=== PATIENT | male | born 1985 | race Caucasian/White ===

== ENCOUNTER 2019-02-10 13:53 | Emergency (ER) | payer MEDICAID ==
[~2019-02-10] VITALS: Ht 182.9 cm; Wt 97.7 kg
[2019-02-10 14:12] VITALS: BP 134/78
[2019-02-10] MEDS ORDERED: IBUP-1985 PO (15:23)
== END 2019-02-10 15:47 | disposition home or self-care (01) ==
LOC: ER 13:54
DX: S92.352A Displaced fracture of fifth metatarsal bone, left foot, initial encounter for closed fracture (principal); Z79.899 Other long term (current) drug therapy; W20.8XXA Other cause of strike by thrown, projected or falling object, initial encounter; Y93.89 Activity, other specified; Y92.89 Other specified places as the place of occurrence of the external cause; Y99.8 Other external cause status
CPT/HCPCS: 73630; 99283

== ENCOUNTER 2019-02-13 16:24 | Emergency (ER) | payer MEDICAID ==
[~2019-02-13] VITALS: Ht 182.9 cm; Wt 97.7 kg
[~2019-02-13 16:24] MED LIST: IBUP-1985 PO
[2019-02-13 16:25] VITALS: BP 138/82
[2019-02-13] MEDS ORDERED: IBUP-1985 PO (16:44)
== END 2019-02-13 16:48 | disposition home or self-care (01) ==
LOC: ER 16:24
DX: M25.511 Pain in right shoulder (principal); Z79.899 Other long term (current) drug therapy; X50.1XXA Overexertion from prolonged static or awkward postures, initial encounter; Y93.89 Activity, other specified; Y92.89 Other specified places as the place of occurrence of the external cause; Y99.8 Other external cause status
CPT/HCPCS: 99282

== ENCOUNTER 2019-06-30 19:22 | Emergency (ER) | payer MEDICAID ==
[~2019-06-30] VITALS: Ht 182.9 cm; Wt 105.0 kg
[2019-06-30 19:25] VITALS: BP 134/77
[2019-06-30] MEDS ORDERED: PENI500T2 PO (20:10)
[2019-06-30] MEDS ORDERED: NAPR-56 PO (20:10)
== END 2019-06-30 20:19 | disposition home or self-care (01) ==
LOC: ER 19:22
DX: K08.89 Other specified disorders of teeth and supporting structures (principal); K00.7 Teething syndrome; F10.99 Alcohol use, unspecified with unspecified alcohol-induced disorder; Z79.899 Other long term (current) drug therapy; Y90.9 Presence of alcohol in blood, level not specified
CPT/HCPCS: 99283

== ENCOUNTER 2020-04-03 19:54 | Emergency (ER) | payer MEDICAID ==
[~2020-04-03] VITALS: Ht 182.9 cm; Wt 97.7 kg
[2020-04-03 20:04] VITALS: BP 143/91
[2020-04-03] MEDS ORDERED: PENI250T2 PO (20:17)
[2020-04-03] MEDS ORDERED: NAPR-56 PO (20:17)
== END 2020-04-03 20:38 | disposition home or self-care (01) ==
LOC: ER 19:55
DX: K04.7 Periapical abscess without sinus (principal); Z72.89 Other problems related to lifestyle; Z79.2 Long term (current) use of antibiotics; Z79.899 Other long term (current) drug therapy
CPT/HCPCS: 99283

== ENCOUNTER 2020-09-28 18:37 | Emergency (ER) | payer MEDICAID ==
--- NOTE | 2020-09-28 18:50 | NUR ---
PT CALLED INTO TRIAGE. HE WAS NOT IN LOBBY CHARGE NURSE NOTIFIED
== END 2020-09-28 18:54 | disposition left against medical advice (07) ==
LOC: ER 18:38
DX: M54.5 Low back pain (principal); Z53.21 Procedure and treatment not carried out due to patient leaving prior to being seen by health care provider

== ENCOUNTER 2020-10-01 15:26 | Emergency (ER) | payer MEDICAID, OTHER ==
[~2020-10-01] VITALS: Ht 182.9 cm; Wt 101.0 kg
[2020-10-01 15:51] VITALS: BP 145/96
[2020-10-01] MEDS ORDERED: ORPH100T2 PO (15:58)
--- NOTE | 2020-10-01 16:09 | NUR ---
seen and assessed by provider.
== END 2020-10-01 16:12 | disposition home or self-care (01) ==
LOC: ER 15:27
DX: S39.012A Strain of muscle, fascia and tendon of lower back, initial encounter (principal); Z72.89 Other problems related to lifestyle; Z79.899 Other long term (current) drug therapy; V49.60XA Unspecified car occupant injured in collision with unspecified motor vehicles in traffic accident, initial encounter; Y93.89 Activity, other specified; Y92.89 Other specified places as the place of occurrence of the external cause; Y99.8 Other external cause status
CPT/HCPCS: 99283

== ENCOUNTER 2021-10-06 12:33 | Emergency (ER) | payer MEDICAID ==
[~2021-10-06] VITALS: Ht 182.9 cm; Wt 97.7 kg
[~2021-10-06 12:33] MED LIST changes: +ORPH100T2 PO
[2021-10-06 13:05] VITALS: BP 133/88
== END 2021-10-06 13:57 | disposition home or self-care (01) ==
LOC: ER 12:34
DX: M25.512 Pain in left shoulder (principal); Z72.89 Other problems related to lifestyle; Z79.899 Other long term (current) drug therapy
CPT/HCPCS: 73030; 99283

== ENCOUNTER 2025-02-08 07:14 | Inpatient (IN) | payer MEDICAID ==
[2025-02-08] VITALS (16 sets, daily range): BP systolic 117–145; BP diastolic 64–90; PULSE 83–115; RESP 12–34; TEMP 97.9; O2SAT 92–99
[~2025-02-08] VITALS: Ht 182.9 cm; Wt 112.5 kg
[~2025-02-08 07:14] MED LIST changes: -ORPH100T2 PO; +ORPH100T4 PO
[2025-02-08 07:39] LABS: BASOPHILS # (AUTO) 0.1 X10'3 (0-0.2); BASOPHILS % (AUTO) 0.2 % (0-1); EOSINOPHILS % (AUTO) 0.1 % (0-6); HEMATOCRIT 49.5 % (42.0-52.0); HEMOGLOBIN 16.4 g/dl (14.0-17.9); LYMPHOCYTES # (AUTO) 1.2 X10'3 (1.1-4.8); LYMPHOCYTES % (AUTO) 4.4 % (21-51); MEAN CORPUSCULAR HEMOGLOBIN 30.6 PG (27.0-31.0); MEAN CORPUSCULAR HGB CONC 33.1 g/dL (33.0-36.5); MEAN CORPUSCULAR VOLUME 92.6 FL (78-98); MEAN PLATELET VOLUME 6.8 FL (7.4-10.4); MONOCYTES # (AUTO) 1.9 X10'3 (0-0.9); MONOCYTES % (AUTO) 7.1 % (2-12); NEUTROPHILS # (AUTO) 24.2 X10'3 (1.8-7.7); NEUTROPHILS % (AUTO) 88.2 % (42-75); PLATELET COUNT 346 X10'3 (140-440); RED BLOOD COUNT 5.35 X10'6 (4.70-6.10); RED CELL DISTRIBUTION WIDTH 13.7 % (11.5-14.5)
[2025-02-08 07:40] LABS: WHITE BLOOD COUNT 27.4 X10'3 (4.5-11.0)
[2025-02-08 08:06] LABS: ALANINE AMINOTRANSFERASE 37 U/L (12-78); ALBUMIN 3.6 G/DL (3.4-5.0); ALKALINE PHOSPHATASE 90 IU/L (46-116); AMYLASE 12 U/L (25-115); ANION GAP 10 (8-16); ASPARTATE AMINO TRANSFERASE 13 U/L (10-37); BILIRUBIN,TOTAL 1.2 MG/DL (0.1-1.0); BLOOD UREA NITROGEN 7 MG/DL (7-18); BUN/CREATININE RATIO 7.4 (10.0-20.0); CALCIUM 8.8 MG/DL (8.5-10.1); CHLORIDE 102 MMOL/L (99-107); CREATININE 0.95 MG/DL (0.60-1.10); GLUCOSE 118 MG/DL (70-104); LIPASE 12 U/L (16-77); POTASSIUM 3.7 MMOL/L (3.5-5.1); SODIUM 138 MMOL/L (135-145); TOTAL CARBON DIOXIDE 26.5 MMOL/L (24-32); TOTAL PROTEIN 7.2 G/DL (6.4-8.2); eCRCL 117 ML/MIN; eGFR 89 ML/MIN
[2025-02-08 08:37] LABS: LYMPHOCYTES % (MANUAL) 6 % (21-51); MONOCYTES % (MANUAL) 6 % (2-12); NEUTROPHILS % (MANUAL) 88 % (42-75); PLATELET ESTIMATE NORMAL; TOTAL CELLS COUNTED 100
--- NOTE | 2025-02-08 09:10 | Physician Documentation ---
History of Present Illness Chief Complaint: Abdominal Pain Stated Complaint: FOOD POISONING Time Seen by MD: 09:08 OK to notify your PCP?: Yes Primary Medical Doctor: NONE Source: patient, RN/MD, RN notes reviewed, old records Mode of Arrival: POV Exam Limitations: no limitations HPI 39 year old male presents to the emergency department for complaints of right sided abdominal pain that began after eating a meal on 02/04. He states he had a sample platter from [employer] he originally thought he had food poisoning because of he date. Since then he has been having diarrhea and vomiting. Additionally he complains that his abdominal pain has been getting progressively worse. He states it hurts to walk and he can only move slowly. Patient denies any other associated symptoms at this time. Patient denies any other alleviating or exacerbating factors Medication Reconciliation Allergies: Coded Allergies: No Known Allergies (Unverified , 02/08/25) Scheduled Ibuprofen (Ibuprofen), 1 TAB PO Q8H Ibuprofen (Ibuprofen), 1 TAB PO Q8H Orphenadrine Citrate (Norflex), 1 TAB PO Q12H PRN Past Medical History Past Medical History: No Pertinent History Past Surgical History: no surgical history Other Past Family History: NONE Alcohol Use: Occasionally Drug Use: none Lives In: Home Occupation: employed Review of Systems All Other Systems at this time: Reviewed and Negative ROS As stated above in the HPI, otherwise all systems are reviewed and negative. Physical Exam Vital Signs: RN Vital Signs have been reviewed: Yes, Temperature: 97.8, Source: Oral, Heart Rate: 79, Respiratory Rate: 16, BP: 133/84, Pulse Oximetry: 100, Weight: 112.450 Pulse Oximetry Reflects: adequate oxygenation Physical Exam General: The patient is well developed, well nourished, nontoxic appearing and is in no acute distress. Skin: [place], warm and dry with no rashes. HEENT: Head was normocephalic and atraumatic. Eyes - pupils equal, round, reactive to light and accommodation. Extraocular movements were intact. Conjunctivae were nonicteric. Ears - bilateral tympanic membranes were normal. The mouth and oropharynx were clear with moist mucous membranes. There were no pharyngeal exudates or erythema. Neck: Supple and nontender. There was no jugular venous distention, lymphadenopathy, thyromegaly or masses. Chest: Clear to auscultation bilaterally without wheezes, rales or rhonchi. No accessory muscle use. No dullness to percussion. Heart: Rate regular and rhythmic. S1, S2. No murmurs. Palpation of the chest wall was normal. No rubs or thrills. Abdomen: Increased bowel sounds. Positive heel strike test. Right pin point tenderness to abdomen. No guarding or rebound. No hepatosplenomegaly or palpable masses. Extremities: No cyanosis, clubbing or edema. The patient moves all extremities. Pulses were equal and symmetric. Neurologic: Cranial nerves II-XII were intact. Sensation was intact to light touch throughout. Motor strength was 5/5 in all four extremities. Deep tendon reflexes were intact in both upper and lower extremities. Psychologic: The patient was oriented to person, place and time. The patient demonstrated appropriate judgement and insight. Progress Progress Note 1029: The case was discussed with the hospitalist Dr. Liang who was informed on t he case and kindly agreed to admit. Results/Orders Reviewed/noted all lab results: Yes Results/Orders Orders - LUISITO FIELDS MD Urinalysis, Cult If Indicated (02/08/25 07:19) Completed Orders - LUISITO FIELDS MD Cbc/Diff (02/08/25 07:19) BMP (02/08/25 07:19) Amylase (02/08/25 07:19) Lipase (02/08/25 07:19) CMP (02/08/25 07:19) Man Diff (02/08/25 07:26) Vital Signs 02/08/25 02/08/25 07:16 09:03 Temp 97.8 Pulse 90 79 Resp 18 16 B/P (MAP) 158/92 133/84 (100) Pulse Ox 99 100 Laboratory Tests Test 02/08/25 07:26 White Blood Count 27.4 *H Red Blood Count 5.35 Hemoglobin 16.4 Hematocrit 49.5 Mean Corpuscular Volume 92.6 Mean Corpuscular Hemoglobin 30.6 Mean Corpuscular Hemoglobin Concent 33.1 Red Cell Distribution Width 13.7 Platelet Count 346 Mean Platelet Volume 6.8 L Neutrophils (%) (Auto) 88.2 H Lymphocytes (%) (Auto) 4.4 L Monocytes (%) (Auto) 7.1 Eosinophils (%) (Auto) 0.1 Basophils (%) (Auto) 0.2 Neutrophils # (Auto) 24.2 H Lymphocytes # (Auto) 1.2 Monocytes # (Auto) 1.9 H Eosinophils # (Auto) 0.0 Basophils # (Auto) 0.1 CBC Comment Differential Total Cells Counted 100 Neutrophils % (Manual) 88 H Lymphocytes % (Manual) 6 L Monocytes % (Manual) 6 Platelet Estimate Normal Red Blood Cell Morphology Normal Basophilic Stippling Sodium Level 138 Potassium Level 3.7 Chloride Level 102 Carbon Dioxide Level 26.5 Anion Gap 10 Blood Urea Nitrogen 7 Creatinine 0.95 Estimated GFR/1.73 m2 89 BUN/Creatinine Ratio 7.4 L Glucose Level 118 H Calcium Level 8.8 Total Bilirubin 1.2 H Aspartate Amino Transf (AST/SGOT) 13 Alanine Aminotransferase (ALT/SGPT) 37 Alkaline Phosphatase 90 Total Protein 7.2 Albumin 3.6 Globulin 3.6 Albumin/Globulin Ratio 1.0 L Amylase Level 12 L Lipase 12 L Chemistry Comments Re-Evaluation Re-Evaluation : Re-Evaluation: Improved Progress Patient was seen and examined. Patient is given reassurance. Patient had significant pain with acute appendicitis in the right lower quadrant upon presentation. Immediate antibiotics and fluid resuscitation was started. I contacted general surgery however cat scan was requested to rule out abscess since it seems the patient may already have a ruptured appendicitis. Laboratory work was concerning for possible rupture since the WBC was 27.4. There is a left shift of 88 neutrophils. Coagulation was within normal limits chemistry within normal limits LFTs also within normal limits lactic acid 1.4 which is reassuring and tox screen was positive for opiates which was due to the morphine given to the patient in the ER urinalysis also was within normal limits. After the CAT scan showed early signs of rupture patient was then admitted to the hospitalist service and scheduled for emergent laparoscopic appendectomy with possibility of converting to an open laparotomy. Patient received blood cultures Zosyn 3.375 mg tetanus was offered. Continuous laboratory monitor interpretation shows sinus tachycardia heart rate 100s, abnormal, my interpretation. Pulse oximetry monitor interpretation shows normal oxygenation 99% room air, normal, my interpretation. EKG/XRAY/CT/US/VASC/MRI CT : Impression Exam: CT CT ABDOMEN PELVIS W/ IV CONTRAST History: ABD PAIN TECHNIQUE: Multiple contiguous axial CT images of the abdomen and pelvis were obtained with intravenous contrast. The images were reformatted to generate coronal and sagittal reconstructions. 100 cc of Omnipaque 350 contrast was injected intravenously. All CT scans at this medical facility are performed using dose modulation techniques as appropriate to a performed exam including the following:Automated exposure control was utilized; adjustment of the MA and/or KV according to patient size; and use of iterative reconstruction technique. Radiation Dose Information: CT Dose: CTDI volume is 35 mGy. Dose-length product is 1969 mGy*cm Comparison: None FINDINGS: There is diffuse fatty infiltration of the liver. The gallbladder, pancreas, kidneys, adrenal glands, and spleen appear within normal limits. There is no evidence of abdominal lymphadenopathy. There is no free fluid or free air. The stomach grossly appears unremarkable. The small and large bowel loops demonstrate normal caliber and distribution. There is a dilated appendix with mural thickening with moderate surrounding fat stranding consistent with acute appendicitis. There is small amount of periappendiceal free air and fluid suggesting rupture. There is no evidence of organized fluid collection to suggest abscess. There are scattered diverticula in the sigmoid colon without evidence of acute diverticulitis. The abdominal aorta and IVC appear within normal limits. The bladder appears within normal limits the degree of distention. Pelvic organ is unremarkable. There is no evidence of a pelvic mass or lymphadenopathy. There is no free fluid collection. Lung bases are clear. There is no acute osseous abnormality. IMPRESSION: 1. Findings consistent with acute appendicitis. There is small amount of periappendiceal free air and fluid suggesting rupture. There is no evidence of periappendiceal abscess. Critical findings discussed with Dr. Fields by Dr. Skyler Watters via phone on 02/08/2025 10:08 AM. HS:Y Electronically Signed by:SKYLER WATTERS MD Date & Time: 02/08/25 1005 Medical Decision Making Additional info obtained from: old records Differential Dx:Considerations: Include: Angina/[place], Aortic dissection, Appendicitis, Bowel obstruction, Cholangitis, Cholelithasis, Constipation, Diverticular disease, Gastritis/PUD, Gastroenteritis, GI hemorrhage, Hernia, Inflammatory BD, Ischemic bowel, Pancreatitis, Testicular torsion, Trauma, intraabdominal, Urinary obstruction, Urinary tract infection, Urolithiasis, Other Departure Time of Disposition: 10:35 Disposition: 09 ADMITTED INPATIENT Admitted to Inpatient Unit: yes, to hospitalist Impression: Primary Impression: Ruptured appendicitis Condition: Guarded Referrals: NO PRIMARY CARE PROVIDER (PCP) Education Educated: Patient Educated regarding: diagnosis, prognosis, need for follow up, other Critical Care Note Total Time (mins): 30 Critical Care Note The very real possibility of a deterioration of this patient's condition required the highest level of my preparedness for sudden, emergent intervention. I provided critical care services, which included medication orders, frequent reevaluations of the patient's condition and response to treatment, ordering and reviewing test results, and discussing the case with various consultants. Excludes time spent performing separately billable procedures. The critical care time associated with the care of the patient was 30 minutes. Signature Scribe Signature: Scribed for Luisito Fields MD by Nicole Franklin . 02/08/25 09:25 Attestation: The note accurately reflects work and decisions made by me.Luisito Fields MD 02/08/25 09:10 LUISITO FIELDS MD February 08, 2025 09:10 NICOLE MAZARIEGOS February 08, 2025 09:26
[2025-02-08] MEDS: TETanus/Pertussis (Acell)/Diphther VAC/PF (Tdap-Adult) 0.5ml syringe IMVAC ONE (09:20)
[2025-02-08] MEDS ORDERED: iohexol 350MG/ML 100ml bottle IV ONE (09:20)
[2025-02-08] MEDS: normal saline 1000ML IV soln IVB ONE (09:27)
[2025-02-08] MEDS: piperacillin/tazo 3.375gm/50ml 50 ML IV STA (09:27)
[2025-02-08] MEDS: morphine 2 MG/ML inj. syringe IV ONE (09:28)
[2025-02-08 09:49] LABS: APTT 29 SECONDS (22-32); INR 1.2 INR; PROTHROMBIN TIME 12.2 SECONDS (9.0-12.0)
--- NOTE | 2025-02-08 10:10 | RADIOLOGY REPORT ---
Exam: CT CT ABDOMEN PELVIS W/ IV CONTRAST History: ABD PAIN TECHNIQUE: Multiple contiguous axial CT images of the abdomen and pelvis were obtained with intraveno us contrast. The images were reformatted to generate coronal and sagittal reconstructions. 100 cc of Omnipaque 350 contrast was injected intravenously. All CT scans at this medical facility are performed using dose modulation techniques as appropriate t o a performed exam including the following:Automated exposure control was utilized; adjustment of the MA and/or KV according to patient size; and use of iterative reconstruction technique. Radiation Dose Information: CT Dose: CTDI volume is 35 mGy. Dose-length product is 1969 mGy*cm Comparison: None FINDINGS: There is diffuse fatty infiltration of the liver. The gallbladder, pancreas, kidneys, adrenal glands , and spleen appear within normal limits. There is no evidence of abdominal lymphadenopathy. There is no free fluid or free air. The stomach grossly appears unremarkable. The small and large bowel loops demonstrate normal caliber and distribution. There is a dilated appendix with mural thickening with moderate surrounding fat str anding consistent with acute appendicitis. There is small amount of periappendiceal free air and flui d suggesting rupture. There is no evidence of organized fluid collection to suggest abscess. There ar e scattered diverticula in the sigmoid colon without evidence of acute diverticulitis. The abdominal aorta and IVC appear within normal limits. The bladder appears within normal limits the degree of distention. Pelvic organ is unremarkable. Ther e is no evidence of a pelvic mass or lymphadenopathy. There is no free fluid collection. Lung bases are clear. There is no acute osseous abnormality. IMPRESSION: 1. Findings consistent with acute appendicitis. There is small amount of periappendiceal free air and fluid suggesting rupture. There is no evidence of periappendiceal abscess. Critical findings discussed with Dr. Fields by Dr. Skyler Watters via phone on 02/08/2025 10:08 AM. HS:Y
[2025-02-08] MEDS ORDERED: magnesium sulf-water 2g/50mL 50 ML IV PRN (10:25)
[2025-02-08] MEDS ORDERED: ondansetron/PF 4mg/2ml inj IV PRN ×2 (10:25→19:05)
[2025-02-08] MEDS ORDERED: morphine 2 MG/ML inj. syringe IV PRN ×2 (10:25→19:05)
[2025-02-08] MEDS ORDERED: acetaminophen 325mg tablet PO PRN (10:25)
[2025-02-08] MEDS ORDERED: mag hydrox/Alum hydrox/simeth 30ml oral suspension PO PRN (10:25)
[2025-02-08] MEDS ORDERED: potassium Cl 20 mEq SR tablet PO PRN ×2 (10:25)
[2025-02-08] MEDS ORDERED: magnesium sulf-water 4G/100mL 100 ML IV PRN (10:25)
[2025-02-08] MEDS ORDERED: magnesium Cl slow-release 64mg tablet PO PRN (10:25)
[2025-02-08] MEDS ORDERED: potassium Cl 40MEQ/1/2NS 520ml 520 ML IV PRN (10:25)
[2025-02-08 10:41] LABS: BILIRUBIN,URINE NEGATIVE (Neg); CLARITY,URINE CLEAR (Clear); COLOR,URINE YELLOW (Yellow); GLUCOSE, URINE NEGATIVE (Neg); KETONES,URINE NEGATIVE (Neg); LEUKOCYTE ESTERASE ,URINE NEGATIVE (Neg); OCCULT BLOOD,URINE NEGATIVE (Neg); PROTEIN,URINE NEGATIVE (Neg); UROBILINOGEN,URINE 0.2 E.U/dL (0.2-1.0)
[2025-02-08 10:42] LABS: NITRITES, URINE NEGATIVE (Neg); UA COLLECTION TYPE CLN CATCH MIDSTREAM
[2025-02-08] MEDS: morphine 2 MG/ML inj. syringe IV PRN (10:54)
--- NOTE | 2025-02-08 11:19 | HISTORY AND PHYSICAL-Residence ---
History & Physical Providers to CC Resident Creating Document: STANLEY SHANKAR RES ~ History of Present Illness Primary Medical Doctor: NONE Reason for Admit\Complaint: Abdominal pain History of Present Illness 39-year-old male patient presents to the hospital complaints of right lower abdominal pain. Reports symptoms of abdominal pain that began two days ago with the associated diarrhea, nausea and vomiting. He thought he had food poisoning and therefore, did not come into the hospital. Yesterday the pain had worsened and migrated from the umbilical region to the right lower quadrant requiring him to come into the ER today. Denies any fevers or chills. Allergies: Coded Allergies: No Known Allergies (Unverified , 02/08/25) Home Medications Home Medications Active Norflex (Orphenadrine Citrate) 100 Mg Tablet.sa 1 Tab PO Q12H PRN Ibuprofen 600 Mg Tablet 1 Tab PO Q8H 10 Days Ibuprofen 600 Mg Tablet 1 Tab PO Q8H 10 Days Past Medical History Past Medical History No past medical history Past Surgical History Surgical History Comment No past surgical history Past Social History Social History Comment Smokes 5-6 cigarettes per day for the last 15 years. Moderate alcohol use- five drinks per week Denies any other illicit drug abuse. Lives at home with his . Works as a drafter detail Alcohol Use: Occasionally Drug Use: None Lives In: Home Occupation: employed ROS ROS As stated above in the HPI, otherwise all systems are reviewed and negative. Exam Vitals: Vital Signs Date Time Temp Pulse Resp B/P (MAP) Pulse Ox O2 Delivery O2 Flow Rate FiO2 02/08/25 10:54 18 02/08/25 10:35 86 141/78 (99) 98 0 02/08/25 07:16 97.8 General: General: Awake and Alert, no acute distress. HEENT: Conjunctiva pink, Sclera clear, Mucus Membranes moist. Resp: Unlabored. Lungs clear to auscultation bilaterally. Heart: Regular Rate and rhythm, normal S1 and S2 without murmur, rub or gallop. Abdomen: Bowel sounds present. Right-sided and paraumbilical tenderness noted. No guarding or rigidity. Extremities: No cyanosis,clubbing or edema. Skin: Warm and Dry. Diagnostic Data Last Recorded Lab Results: 02/08/25 0726 02/08/25 0726 Diagnostic Data: Laboratory Tests Test 5/21/25 09:26 Prothrombin Time 12.2 SECONDS (9.0-12.0) H INR International Normalized Ratio 1.2 INR Activated Partial Thromboplast Time 29 SECONDS (22-32) Coagulation Comments Counseling Services Smoking & Tobacco Cessation: 3-10 Minutes Advance Care Planning Advanced Care plannin - 30 Minutes Additional Plan 1. Acute perforated appendicitis: Leukocytosis secondary to above IV fluids and IV Zosyn continuing Dr. Lynne, surgery consulted. Plan for surgery in the next couple hours NPO until after surgery, advance diet as tolerated after 2. Nicotine use disorder: Declines nicotine patch Counseled for 10-50 minutes regarding the need to quit smoking and advised about the sources available in the hospital to help him Lines: PIV Code status: Full code Diet: NPO Stanley Shankar PGY2, Internal medicine resident Date of Service: February 08, 2025 Billing Provider: WESTLEY VALIENTE MD Common Visit Codes: 46661-[id number] INP/OBS CARE (HIGH) Secondary Visit Codes: 61099-[id number] CARE PLAN 30 MINUTES STANLEY SHANKAR, YOMI February 08, 2025 11:19 WESTLEY VALIENTE MD February 09, 2025 14:10
[2025-02-08] MEDS: ringers solution, lacted 1,000 ML IV ONE (11:20)
[2025-02-08 14:56] LABS: URINE AMPHETAMINE SCREEN NEGATIVE (Neg); URINE BARBITUATE SCREEN NEGATIVE (Neg); URINE BENZODIAZEPINES SCREEN NEGATIVE (Neg); URINE CANNABINOID SCREEN NEGATIVE (Neg); URINE COCAINE SCREEN NEGATIVE (Neg); URINE METHADONE SCREEN NEGATIVE (Neg); URINE OPIATE SCREEN POSITIVE (Neg); URINE PHENCYCLIDINE SCREEN NEGATIVE (Neg)
--- NOTE | 2025-02-08 18:26 | CONSULTATION REPORT ---
History of Present Illness Providers to CC CC: CATHERINE CHAPARRO MD ~ Reason for Admit\Admit Dx: Ruptured appendicitis Refering MD: NONE History of Present Illness 39-year-old gentleman with a 36-48 hour history of worsening abdominal pain presents to the emergency room early this morning. Clinical and radiographic evidence of acute appendicitis. There is evidence of perforation with free extraluminal air adjacent to the appendix. Patient with localized peritonitis. Surgical consultation requested. Patient admitted to the hospitalist service and started on parenteral antibiotics. Denies any fevers, chills, night sweats, nausea, vomited or black or bloody stool. Allergies: Coded Allergies: No Known Allergies (Unverified , 02/08/25) Home Medications Home Medications Active Norflex (Orphenadrine Citrate) 100 Mg Tablet.sa 1 Tab PO Q12H PRN Ibuprofen 600 Mg Tablet 1 Tab PO Q8H 10 Days Ibuprofen 600 Mg Tablet 1 Tab PO Q8H 10 Days Past Medical History Medical History Comment None reported Past Surgical History Surgical History Comment None reported Past Family History Family History Comment Not applicable Past Social History Social History Comment Smokes cigarettes daily Alcohol three-5 times per week No drugs or narcotics Works as a [employer] Not applicable Physical Exam Last Vital Signs Recorded: RN Vital Signs have been reviewed: Yes, Temperature: 97.8, Source: Oral, Heart Rate: 89, Respiratory Rate: 15, BP: 137/64, Pulse Oximetry: 97, Weight: 112.450 General Appearance: alert, WD/WN EENT: PERRL/EOMI; No: scleral icterus (R), scleral icterus (L) Neck: normal inspection, supple Respiratory: lungs clear Cardiovascular: regular rate, rhythm Gastrointestinal Abdomen softly distended Exquisite tenderness in the right lower quadrant with tenderness to percussion and localized rebound tenderness No palpable masses or hernias Genitalia: normal, no hernias Rectal: deferred Back: no CVA tenderness Extremities: no edema Neurologic: oriented x4 Psychiatric: normal mood/affect, anxiety Skin: warm/dry Lymphatic: no adenopathy Review of Systems ROS ROS Comments: Reviewed and negative with the exception of those found in the history of present illness Results Diagram Lab Result Diagram: 02/08/25 0726 02/08/25 07 Assessment/Plan Problems/Diagnosis: (1) Ruptured appendicitis Assessment & Plan: The risks, benefits, and alternatives to a robotic assisted, laparoscopic possible open appendectomy were discussed with the patient. Risks include, but are not limited to, bleeding, infection, injury to intra-abdominal structures, leakage from the intestine and the need for additional surgery. Patient verbalized understanding and wishes to proceed with surgery. We will do so today as soon as possible. Patient will likely need 3-5 days of postoperative inpatient stay due to ruptured appendicitis, periappendiceal abscess and the need for parenteral antibiotics CATHERINE CHAPARRO MD February 08, 2025 18:25
[2025-02-08] MEDS ORDERED: BUPIVAcaine 2.5mg/ml inj 50ml vial (contains preservative) ONE (18:40)
[2025-02-08] MEDS ORDERED: LIDOcaine 1% 30ml preserv. free vial ONE (18:40)
[2025-02-08] MEDS ORDERED: midazolam 1 mg/ML 2ml injection ONE (18:59)
[2025-02-08] MEDS ORDERED: fentaNYL /PF 50mcg/ml 5ml ampule ONE (18:59)
[2025-02-08] MEDS ORDERED: meperidine/PF 25mg/ml syringe IV PRN (19:05)
[2025-02-08] MEDS ORDERED: HYDROmorphone/PF 0.2 MG/ML SYRINGE IV PRN ×2 (19:05)
[2025-02-08] MEDS ORDERED: hydrALAZINE 20mg/ml inj. IV PRN (19:05)
[2025-02-08] MEDS ORDERED: proCHLORperazine 10 MG/2 ml inj IV PRN (19:05)
[2025-02-08] MEDS ORDERED: labetalol 20mg/4ml (5mg/ml) syringe IV PRN (19:05)
[2025-02-08] MEDS ORDERED: ringers solution, lacted 1,000 ML IV SCH (19:05)
[2025-02-08] MEDS ORDERED: morphine 4 MG/ML inj SYRINge IV PRN (19:05)
[2025-02-08] MEDS ORDERED: dexamethasone sod phosphate 4mg/ml inj. ONE (19:18)
[2025-02-08] MEDS ORDERED: ondansetron/PF 4mg/2ml inj ONE (19:19)
[2025-02-08] MEDS ORDERED: propofol inj 20 ML IV ONE (19:19)
[2025-02-08] MEDS ORDERED: LIDOcaine 2% (20mg/ml) 5ml vial ONE (19:19)
[2025-02-08] MEDS ORDERED: rocuronium 10mg/ml inj IV ONE (19:19)
[2025-02-08] MEDS ORDERED: ceFOXitin 1000 MG inj ONE ×2 (19:21)
[2025-02-08] MEDS: BUPIVAcaine/PF 2.5 mg/ml (0.25%) 30ml vial IJ ONE (19:50)
[2025-02-08] MEDS: K and/or MAG REPLACEMENT MC SCH (20:00)
[2025-02-08] MEDS: normal saline 1000ml 1,000 ML IV SCH (20:25)
[2025-02-08] MEDS ORDERED: sevoflurane 250ml liquid IH ONE (20:25)
[2025-02-08] MEDS ORDERED: sugammadex 200mg/2ml injection IV ONE (20:27)
[2025-02-08] MEDS ORDERED: neostigmine methylsulfate 1 MG/ML 10ml vial ONE (20:32)
[2025-02-08] MEDS ORDERED: glycopyrrolate 0.2mg/ml inj ONE (20:32)
[2025-02-08] MEDS: acetaminophen 1,000mg/100ml IV 100 ML IV PRN (20:58)
[2025-02-08] MEDS ORDERED: naloxone 0.4 mg/ml inj IV PRN (21:05)
--- NOTE | 2025-02-08 21:13 | OPERATIVE REPORT ---
Operative Report Providers to CC CC: EMMETT CHAPARRO MD ~ Date of Procedure: February 08, 2025 Pre-Operative Diagnosis: Acute appendicitis Post-Operative Diagnosis Ruptured gangrenous appendicitis with feculent peritonitis Procedure Performed Robotic assisted, laparoscopic appendectomy Surgeon: Emmett Chaparro MD FACS Campus Monitor None Anesthesiologist: Holly Watters Type of Anesthesia: General Findings: Contained and ruptured appendicitis. Retrocecal appendix. Gangrenous with perforation and localized feculent peritonitis Wound class IV Complications None Prosthetics\Implants used: 19 [place] Mike drain Estimated Blood Loss: 50 cc Specimen Removed: Appendix in pieces Description of Procedure: Patient was brought to the operating room and identified by the nursing staff and the attending physician. Patient was placed supine and a general anesthesia was induced. The patient's abdomen was prepped and draped in the standard sterile fashion. Preoperative antibiotics were given. Veress needle technique was used at Bruce's point and the abdomen was insufflated without incident. Under laparoscopic visualization a 12 mm port was placed in the right upper quadrant. Laparoscope was inserted and additional 8.5 mm robotic ports were placed in the left periumbilical and left lower quadrant. Patient was placed in Trendelenburg position with the right side up. [place] robotic arm was docked to the patient and instruments guided into the abdomen under laparoscopic visualization. Appendix was not readily identified. Omentum was swept up to the upper abdomen. Small bowel was swept towards the left side of the abdomen. Cecum was visualized. There was an inflammatory process in the retrocecal space. The cecum was rolled toward the midline, unroofing a contained perforation. Due to the patient's body habitus, it was difficult to obtain adequate visualization with the retraction at hand. I scrubbed back in and cecily robi a 4th robotic port. This was docked and instruments placed under laparoscopic visualization. This was used for retraction throughout the case. The appendix was bluntly mobilized out of the retrocecal space. It was grossly gangrenous and ruptured with localized peritonitis and visible feculent material. The area was suctioned and irrigated and particulate matter was all suctioned. While trying to mobilize the appendix it avulsed about 1 cm distal to the base. Base was divided from the cecum using a robotic linear cutting stapler. There was active bleeding from the mesoappendix. I was not able to gain control of this until I mobilize the remainder of the appendix out of the retrocecal space. This was set aside with the stump. Bleeding at the mes oappendix was controlled with bipolar grasper and no further bleeding from the appendiceal artery continued. The area was then copiously irrigated with 2 L of saline solution and suctioned until the irrigant returned clear. Mike drain was brought in through the lateral port and laid in the right pericolic gutter and extended down into the right hemipelvis. The appendix was placed in a laparoscopic retrieval bag and removed. Instruments were removed and the [place] robotic arm was undocked from the patient. The 12 mm port site fascia was closed percutaneously with 0 Vicryl suture. Remaining ports were removed and the abdomen was allowed to deflate. Drain was sutured in place. Skin was closed at all sites with skin celio. Dressings were applied. Patient was awakened and taken to the postanesthesia care unit in stable condition. Counts repoted as correct: Yes EMMETT CHAPARRO MD February 08, 2025 21:13
[2025-02-08] MEDS ORDERED: oxyCODONE/APAP 5-325mg tablet PO PRN (22:20)
[2025-02-08] MEDS: docusate sod 100mg capsule PO SCH (22:31)
[2025-02-08] MEDS: heparin, porcine 5000 units/ml vial SQ SCH (22:31)
[2025-02-09] VITALS (7 sets, daily range): BP systolic 116–139; BP diastolic 69–86; PULSE 67–96; RESP 16–18; TEMP 97.4–98; O2SAT 92–97
[2025-02-09] MEDS: piperacillin/tazo 4.5gm/100ml 100 ML IV SCH (00:18)
[2025-02-09] MEDS: acetaminophen 325mg tablet PO PRN (03:59)
[2025-02-09 04:28] LABS: BASOPHILS % (AUTO) 0 % (0-1); EOSINOPHILS % (AUTO) 0 % (0-6); HEMATOCRIT 45.2 % (42.0-52.0); HEMOGLOBIN 15.1 g/dl (14.0-17.9); LYMPHOCYTES # (AUTO) 1.1 X10'3 (1.1-4.8); LYMPHOCYTES % (AUTO) 4.1 % (21-51); MEAN CORPUSCULAR HEMOGLOBIN 31.1 PG (27.0-31.0); MEAN CORPUSCULAR HGB CONC 33.5 g/dL (33.0-36.5); MEAN CORPUSCULAR VOLUME 92.8 FL (78-98); MONOCYTES # (AUTO) 1.6 X10'3 (0-0.9); NEUTROPHILS # (AUTO) 24.2 X10'3 (1.8-7.7); NEUTROPHILS % (AUTO) 89.9 % (42-75); PLATELET COUNT 302 X10'3 (140-440); RED BLOOD COUNT 4.87 X10'6 (4.70-6.10); RED CELL DISTRIBUTION WIDTH 13.8 % (11.5-14.5)
[2025-02-09 04:43] LABS: ALBUMIN 2.8 G/DL (3.4-5.0); ANION GAP 7 (8-16); BLOOD UREA NITROGEN 9 MG/DL (7-18); BUN/CREATININE RATIO 7.6 (10.0-20.0); CALCIUM 8.7 MG/DL (8.5-10.1); CHLORIDE 101 MMOL/L (99-107); CHOL/HDL RATIO 4.5 (0.00-4.99); CHOLESTEROL 121 MG/DL (0-200); CREATININE 1.19 MG/DL (0.60-1.10); GLUCOSE 154 MG/DL (70-104); HDL CHOLESTEROL 27 MG/DL (35-60); LDL CHOLESTEROL 51 MG/DL (50-100); MAGNESIUM 1.9 MG/DL (1.5-2.4); SODIUM 136 MMOL/L (135-145); TOTAL CARBON DIOXIDE 27.7 MMOL/L (24-32); TRIGLYCERIDES 101 MG/DL (20-135); eCRCL 93 ML/MIN; eGFR 69 ML/MIN
[2025-02-09 05:24] LABS: LARGE PLATELETS FEW; PLATELET ESTIMATE NORMAL; TOTAL CELLS COUNTED 100
--- NOTE | 2025-02-09 10:24 | PROGRESS NOTE ---
Progress Note Dictate Providers to CC ~ Progress Note: Subsequent surgical care on a 39-year-old gentleman who is postoperative day 1. Status post robotic assisted, laparoscopic appendectomy for ruptured, gangrenous appendicitis with feculent peritonitis Despite the severity of the case, patient's diet has been advanced by nursing staff to regular in less than 12 hours Patient will need 3-5 days intravenous antibiotics as an inpatient per national recommendations Incisions dressed and dry Drain with serosanguineous output Continue antibiotics Downgrade diet to full liquids and continue this until completely tolerating Anticipate another 3-[address] Jeffy Lawrence will be assuming care of my patients this afternoon for the next five days Antibiotic Ordered?: Yes Objective Vitals Vital Signs Date Time Temp Pulse Resp B/P (MAP) Pulse Ox O2 Delivery O2 Flow Rate FiO2 02/09/25 06:00 97.4 67 16 139/86 (103) 95 Room Air 02/09/25 02:38 0.0 93 Lab Results: 02/09/25 0415 02/09/25 0415 Coagulation Studies Laboratory Tests Test 02/08/25 09:26 Prothrombin Time 12.2 SECONDS (9.0-12.0) H INR International Normalized Ratio 1.2 INR Activated Partial Thromboplast Time 29 SECONDS (22-32) Coagulation Comments Problem\Assessment\Plan Problems/Diagnosis: (1) Ruptured appendicitis CATHERINE CHAPARRO MD February 09, 2025 10:23
[2025-02-09] MEDS: oxyCODONE/APAP 5-325mg tablet PO PRN (11:06)
--- NOTE | 2025-02-09 12:34 | PROGRESS NOTE- Residence ---
Progress Note - Resident Providers to CC Resident Creating Document: AURORA NOEL, YOMI ~ Central Line/PICC still needed: No Leyva-Non Protocol Leyva Indications Met/Not Met: F/C Indications Not Met Antibiotic Timeout Antibiotic Ordered?: Yes Subjective Patient seems to be comfortable and in no acute distress. He is passing gas. Developed some nausea with regular diet, downgraded to full liquid diet. Ongoing leukocytosis but hemodynamically stable Objective Vital Signs Date Time Temp Pulse Resp B/P (MAP) Pulse Ox O2 Delivery O2 Flow Rate FiO2 02/09/25 11:06 16 02/09/25 06:00 97.4 67 139/86 (103) 95 Room Air 02/09/25 02:38 0.0 93 Result Diagram: 02/09/2541402/09/25414 General: Awake and Alert, no acute distress. HEENT: Conjunctiva pink, Sclera clear, Mucus Membranes moist. Resp: Unlabored. Diminished basilar breath sounds Heart: Regular Rate and rhythm, normal S1 and S2 without murmur, rub or gallop. Abdomen: Distended, soft, nontender, bowel sounds present. Laparoscopic incision scars with bandage present Extremities: No cyanosis,clubbing or edema. Skin: Warm and Dry. Coagulation Studies Laboratory Tests Test 02/08/25 09:26 Prothrombin Time 12.2 SECONDS (9.0-12.0) H INR International Normalized Ratio 1.2 INR Activated Partial Thromboplast Time 29 SECONDS (22-32) Coagulation Comments Assessment Assessment 39-year-old male patient presents to the hospital with complaints of right lower abdominal pain associated with diarrhea, nausea and vomiting. He was found to have acute appendicitis with perforation and leukocytosis. Surgical procedure was performed yesterday on 02/08/[address] Lynne, intraoperative findings included perforated appendix with surrounding feculent peritonitis. Plan Plan 1. Acute perforated appendicitis: Complicated by feculent peritonitis SIRS secondary to above: POA IV fluids and IV Zosyn continuing Dr. Lynne, surgery consulted. Plan for surgery in the next couple hours NPO until after surgery, advance diet as tolerated after 02/09/2025: Surgery performed on 02/08/2025 PER drain left in place, drained about 100 cc last night [place], [place] [id number]. Trend procalcitonin. Repeat CBC later in the evening today Continue Zosyn Full liquid diet Monitor vitals 2. Nicotine use disorder: Declines nicotine patch Lines: PIV Code status: Full code Diet: NPO Aurora Noel PGY2, Internal medicine resident Date of Service: February 09, 2025 Billing Provider: WESTLEY VALIENTE MD Common Visit Codes: [id number] INP/OBS CARE(HIGH) AURORA NOEL, YOMI February 09, 2025 12:34 WESTLEY VALIENTE MD February 09, 2025 14:11
[2025-02-09 19:07] LABS: BASOPHILS % (AUTO) 0.1 % (0-1); EOSINOPHILS % (AUTO) 0 % (0-6); HEMATOCRIT 42.4 % (42.0-52.0); HEMOGLOBIN 14.2 g/dl (14.0-17.9); LYMPHOCYTES # (AUTO) 1.5 X10'3 (1.1-4.8); MEAN CORPUSCULAR HEMOGLOBIN 31.4 PG (27.0-31.0); MEAN CORPUSCULAR HGB CONC 33.6 g/dL (33.0-36.5); MEAN CORPUSCULAR VOLUME 93.5 FL (78-98); MEAN PLATELET VOLUME 7.4 FL (7.4-10.4); MONOCYTES # (AUTO) 1.6 X10'3 (0-0.9); MONOCYTES % (AUTO) 6.6 % (2-12); NEUTROPHILS # (AUTO) 21.4 X10'3 (1.8-7.7); NEUTROPHILS % (AUTO) 87.3 % (42-75); PLATELET COUNT 314 X10'3 (140-440); RED BLOOD COUNT 4.53 X10'6 (4.70-6.10); WHITE BLOOD COUNT 24.5 X10'3 (4.5-11.0)
[2025-02-10 04:43] LABS: BASOPHILS % (AUTO) 0.1 % (0-1); EOSINOPHILS % (AUTO) 0.1 % (0-6); HEMATOCRIT 39.6 % (42.0-52.0); HEMOGLOBIN 13.2 g/dl (14.0-17.9); LYMPHOCYTES # (AUTO) 2.1 X10'3 (1.1-4.8); LYMPHOCYTES % (AUTO) 10.4 % (21-51); MEAN CORPUSCULAR HGB CONC 33.4 g/dL (33.0-36.5); MEAN CORPUSCULAR VOLUME 92.9 FL (78-98); MEAN PLATELET VOLUME 7.1 FL (7.4-10.4); MONOCYTES # (AUTO) 1.6 X10'3 (0-0.9); MONOCYTES % (AUTO) 7.8 % (2-12); NEUTROPHILS # (AUTO) 16.6 X10'3 (1.8-7.7); NEUTROPHILS % (AUTO) 81.6 % (42-75); PLATELET COUNT 312 X10'3 (140-440); RED BLOOD COUNT 4.26 X10'6 (4.70-6.10); WHITE BLOOD COUNT 20.4 X10'3 (4.5-11.0)
[2025-02-10 04:59] LABS: ALBUMIN 2.4 G/DL (3.4-5.0); ANION GAP 7 (8-16); BLOOD UREA NITROGEN 12 MG/DL (7-18); CALCIUM 8.8 MG/DL (8.5-10.1); CHLORIDE 107 MMOL/L (99-107); CREATININE 0.92 MG/DL (0.60-1.10); GLUCOSE 103 MG/DL (70-104); POTASSIUM 4.2 MMOL/L (3.5-5.1); SODIUM 143 MMOL/L (135-145); TOTAL CARBON DIOXIDE 29.3 MMOL/L (24-32); eCRCL 121 ML/MIN; eGFR > 90 ML/MIN
[2025-02-10 06:30] VITALS: BP 116/69; PULSE 62; RESP 18; TEMP 97.5; O2SAT 98
[2025-02-10 08:48] LABS: C-REACTIVE PROTEIN 28.85 MG/DL (0.0-0.5)
[2025-02-10] MEDS: magnesium hydroxide 30ml (MOM) UD suspension PO PRN (09:56)
[2025-02-10 10:00] VITALS: BP 135/77; PULSE 57; RESP 17; TEMP 97.3; O2SAT 100
--- NOTE | 2025-02-10 13:53 | PROGRESS NOTE- Residence ---
Progress Note - Resident Providers to CC Resident Creating Document: STANLEY NOEL, RES ~ Central Line/PICC still needed: No Leyva-Non Protocol Leyva Indications Met/Not Met: F/C Indications Not Met Antibiotic Timeout Antibiotic Ordered?: Yes Subjective Patient is comfortable, complains of some itching at the drain insertion site. No overnight events. Patient advance to regular diet today, Maalox by surgery given to facilitate bowel movement. Objective Vital Signs Date Time Temp Pulse Resp B/P (MAP) Pulse Ox O2 Delivery O2 Flow Rate FiO2 02/10/25 06:30 97.5 62 18 116/69 (85) 98 02/09/25 22:00 Room Air 02/09/25 02:38 0.0 93 Result Diagram: 02/10/2542702/10/25427 General: Awake and Alert, no acute distress. HEENT: Conjunctiva pink, Sclera clear, Mucus Membranes moist. Resp: Unlabored. Diminished basilar breath sounds Heart: Regular Rate and rhythm, normal S1 and S2 without murmur, rub or gallop. Abdomen: Distended, soft, nontender, bowel sounds present. Laparoscopic incision scars with bandage present. PER Drain in the right upper quadrant Extremities: No cyanosis,clubbing or edema. Skin: Warm and Dry. Coagulation Studies Laboratory Tests Test 02/08/25 09:26 Prothrombin Time 12.2 SECONDS (9.0-12.0) H INR International Normalized Ratio 1.2 INR Activated Partial Thromboplast Time 29 SECONDS (22-32) Coagulation Comments Assessment Assessment 39-year-old male patient presents to the hospital with complaints of right lower abdominal pain associated with diarrhea, nausea and vomiting. He was found to have acute appendicitis with perforation and leukocytosis. Surgical procedure was performed yesterday on 02/08/[address] Lynne, intraoperative findings included perforated appendix with surrounding feculent peritonitis. Plan Plan 1. Acute perforated appendicitis: POA Complicated by feculent peritonitis Sepsis secondary to above: POA IV fluids and IV Zosyn continuing Dr. Lynne, surgery consulted. Plan for surgery in the next couple hours NPO until after surgery, advance diet as tolerated after 02/09/2025: Surgery performed on 02/08/2025 PER drain left in place, drained about 100 cc last night [place], [place] [id number]. Trend procalcitonin. Repeat CBC later in the evening today Continue Zosyn Full liquid diet Monitor vitals 02/10/2025: POD day 2 Advance to regular diet Surgeon on board Possible bowel movement today with Maalox. Maalox b.i.d. ordered by [place] [id number] today. ESR remained stable at 59, CRP improved slightly. Procalcitonin also improving Continue Zosyn, CBC, ESR and CRP repeat trended Monitor for hemodynamic instability 2. Nicotine use disorder: Declines nicotine patch Lines: PIV Code status: Full code Diet: NPO Stanley Noel PGY2, Internal medicine resident Date of Service: February 10, 2025 Billing Provider: WESTLEY VALIENTE MD Common Visit Codes: [id number] INP/OBS CARE(HIGH) STANLEY NOEL, RES February 10, 2025 13:53 WESTLEY VALIENTE MD February 10, 2025 19:05
--- NOTE | 2025-02-10 14:14 | PROGRESS NOTE ---
Progress Note ID Providers to CC ~ Progress Note Progress Note: slow progress/cont antibx MICHAEL NELSON MD February 10, 2025 14:14
[2025-02-10 18:00] VITALS: BP 131/71; PULSE 73; RESP 16; TEMP 98; O2SAT 97
[2025-02-10] MEDS: magnesium hydroxide 30ml (MOM) UD suspension PO SCH (20:00)
[2025-02-10 22:00] VITALS: BP 160/75; PULSE 63; RESP 18; TEMP 99.5; O2SAT 95
[2025-02-11 06:00] VITALS: BP 103/49; PULSE 54; RESP 18; TEMP 97.2; O2SAT 98
[2025-02-11 06:13] LABS: BASOPHILS # (AUTO) 0.1 X10'3 (0-0.2); BASOPHILS % (AUTO) 0.5 % (0-1); EOSINOPHILS # (AUTO) 0.1 X10'3 (0-0.9); EOSINOPHILS % (AUTO) 0.9 % (0-6); HEMATOCRIT 38.8 % (42.0-52.0); HEMOGLOBIN 13.1 g/dl (14.0-17.9); LYMPHOCYTES # (AUTO) 3.1 X10'3 (1.1-4.8); LYMPHOCYTES % (AUTO) 26.4 % (21-51); MEAN CORPUSCULAR HEMOGLOBIN 31.2 PG (27.0-31.0); MEAN CORPUSCULAR HGB CONC 33.8 g/dL (33.0-36.5); MEAN CORPUSCULAR VOLUME 92.1 FL (78-98); MEAN PLATELET VOLUME 7.2 FL (7.4-10.4); MONOCYTES % (AUTO) 8.1 % (2-12); NEUTROPHILS # (AUTO) 7.5 X10'3 (1.8-7.7); NEUTROPHILS % (AUTO) 64.1 % (42-75); PLATELET COUNT 359 X10'3 (140-440); RED BLOOD COUNT 4.21 X10'6 (4.70-6.10); RED CELL DISTRIBUTION WIDTH 13.9 % (11.5-14.5); WHITE BLOOD COUNT 11.8 X10'3 (4.5-11.0)
[2025-02-11 06:28] LABS: ALBUMIN 2.3 G/DL (3.4-5.0); ANION GAP 5 (8-16); BLOOD UREA NITROGEN 11 MG/DL (7-18); BUN/CREATININE RATIO 10.7 (10.0-20.0); CALCIUM 8.6 MG/DL (8.5-10.1); CHLORIDE 107 MMOL/L (99-107); CREATININE 1.03 MG/DL (0.60-1.10); GLUCOSE 92 MG/DL (70-104); MAGNESIUM 2.1 MG/DL (1.5-2.4); POTASSIUM 4.2 MMOL/L (3.5-5.1); SODIUM 142 MMOL/L (135-145); TOTAL CARBON DIOXIDE 30.3 MMOL/L (24-32); eCRCL 108 ML/MIN; eGFR 81 ML/MIN
[2025-02-11 09:00] VITALS: RESP 16; O2SAT 98
[2025-02-11 09:35] LABS: C-REACTIVE PROTEIN 9.43 MG/DL (0.0-0.5)
[2025-02-11 10:00] VITALS: BP 109/64; PULSE 64; RESP 16; TEMP 98; O2SAT 98
--- NOTE | 2025-02-11 11:56 | PROGRESS NOTE- Residence ---
Progress Note - Resident Providers to CC Resident Creating Document: AURORA NOEL, YOMI ~ Central Line/PICC still needed: No Leyva-Non Protocol Leyva Indications Met/Not Met: F/C Indications Not Met Antibiotic Timeout Antibiotic Ordered?: Yes Subjective Patient has no new acute complaints. Had a bowel movement yesterday. Objective Vital Signs Date Time Temp Pulse Resp B/P (MAP) Pulse Ox O2 Delivery O2 Flow Rate FiO2 02/11/25 06:00 97.2 54 18 103/49 (67) 98 Room Air 02/09/25 02:38 0.0 93 Result Diagram: 02/11/25 0505 02/11/25 0505 General: Awake and Alert, no acute distress. HEENT: Conjunctiva pink, Sclera clear, Mucus Membranes moist. Resp: Unlabored. Diminished basilar breath sounds Heart: Regular Rate and rhythm, normal S1 and S2 without murmur, rub or gallop. Abdomen: Distended, soft, nontender, bowel sounds present. Laparoscopic incision scars with bandage present. PER Drain in the right upper quadrant Extremities: No cyanosis,clubbing or edema. Skin: Warm and Dry. Coagulation Studies Laboratory Tests Test 02/08/25 09:26 Prothrombin Time 12.2 SECONDS (9.0-12.0) H INR International Normalized Ratio 1.2 INR Activated Partial Thromboplast Time 29 SECONDS (22-32) Coagulation Comments Assessment Assessment 39-year-old male patient presents to the hospital with complaints of right lower abdominal pain associated with diarrhea, nausea and vomiting. He was found to have acute appendicitis with perforation and leukocytosis. Surgical procedure was performed yesterday on 02/08/[address] Lynne, intraoperative findings included perforated appendix with surrounding feculent peritonitis. Plan Plan 1. Acute perforated appendicitis: POA Complicated by feculent peritonitis Sepsis secondary to above: POA IV fluids and IV Zosyn continuing Dr. Lynne, surgery consulted. Plan for surgery in the next couple hours NPO until after surgery, advance diet as tolerated after 02/09/2025: Surgery performed on 02/08/2025 PER drain left in place, drained about 100 cc last night [place]os[place] [id number]. Trend procalcitonin. Repeat CBC later in the evening today Continue Zosyn Full liquid diet Monitor vitals 02/10/2025: POD day 2 Advance to regular diet Surgeon on board Possible bowel movement today with Maalox. Maalox b.i.d. ordered by [place] [id number] today. ESR remained stable at 59, CRP improved slightly. Procalcitonin also improving Continue Zosyn, CBC, ESR and CRP repeat trended Monitor for hemodynamic instability 02/11/2025: POD day 3 Continue IV Zosyn. Leukocytosis significantly improving. ESR and CRP also improving One blood culture positive; repeat blood cultures again PER drain to be removed today 2. Nicotine use disorder: Declines nicotine patch Lines: PIV Code status: Full code Diet: NPO Dispo: Plan for discharge in a.m.. Patient will be discharged home with no services. Needs surgeon's decision regarding continuing antibiotic therapy. He received a total of four days of Zosyn and no intraoperative cultures. Aurora Noel PGY2, Internal medicine resident Date of Service: February 11, 2025 Billing Provider: WESTLEY VALIENTE MD Common Visit Codes: [id number] INP/OBS CARE(HIGH) AURORA NOEL, RES February 11, 2025 11:56 WESTLEY VALIENTE MD February 11, 2025 20:31
--- NOTE | 2025-02-11 20:10 | PROGRESS NOTE ---
Progress Note ID Providers to CC ~ Progress Note Progress Note: doing well/cont antibx MICHAEL NELSON MD February 11, 2025 20:10
[2025-02-11 22:00] VITALS: BP 124/79; PULSE 64; RESP 18; TEMP 97.5; O2SAT 99
[2025-02-12 06:00] VITALS: BP 138/84; PULSE 54; RESP 18; TEMP 97.1; O2SAT 97
[2025-02-12 06:00] LABS: BASOPHILS # (AUTO) 0.1 X10'3 (0-0.2); BASOPHILS % (AUTO) 0.8 % (0-1); EOSINOPHILS # (AUTO) 0.1 X10'3 (0-0.9); EOSINOPHILS % (AUTO) 1.4 % (0-6); HEMATOCRIT 41.7 % (42.0-52.0); HEMOGLOBIN 14.2 g/dl (14.0-17.9); LYMPHOCYTES # (AUTO) 2.8 X10'3 (1.1-4.8); LYMPHOCYTES % (AUTO) 27.7 % (21-51); MEAN CORPUSCULAR HEMOGLOBIN 31.7 PG (27.0-31.0); MEAN CORPUSCULAR HGB CONC 34.1 g/dL (33.0-36.5); MEAN CORPUSCULAR VOLUME 92.8 FL (78-98); MONOCYTES % (AUTO) 9.4 % (2-12); NEUTROPHILS # (AUTO) 6.2 X10'3 (1.8-7.7); NEUTROPHILS % (AUTO) 60.7 % (42-75); PLATELET COUNT 378 X10'3 (140-440); RED BLOOD COUNT 4.49 X10'6 (4.70-6.10); RED CELL DISTRIBUTION WIDTH 13.9 % (11.5-14.5); WHITE BLOOD COUNT 10.3 X10'3 (4.5-11.0)
[2025-02-12 06:23] LABS: ALBUMIN 2.4 G/DL (3.4-5.0); ANION GAP 7 (8-16); BLOOD UREA NITROGEN 9 MG/DL (7-18); BUN/CREATININE RATIO 9.1 (10.0-20.0); CALCIUM 8.8 MG/DL (8.5-10.1); CHLORIDE 107 MMOL/L (99-107); CREATININE 0.99 MG/DL (0.60-1.10); GLUCOSE 101 MG/DL (70-104); MAGNESIUM 2.2 MG/DL (1.5-2.4); SODIUM 143 MMOL/L (135-145); TOTAL CARBON DIOXIDE 29.1 MMOL/L (24-32); eCRCL 112 ML/MIN; eGFR 85 ML/MIN
[2025-02-12 06:24] LABS: NUCLEATED RED BLOOD CELLS 1 /100WBC (0-0); PLATELET ESTIMATE NORMAL; TOTAL CELLS COUNTED 100
[2025-02-12 06:48] LABS: POTASSIUM 4.3 MMOL/L (3.5-5.1)
[2025-02-12 08:00] VITALS: RESP 18; O2SAT 97
[2025-02-12] MEDS ORDERED: AMOX-580 PO (09:39)
[2025-02-12] MEDS ORDERED: ACET-1008 PO ×2 (09:39→18:19)
[2025-02-12] MEDS ORDERED: LACT1CAP26 PO (09:40)
--- NOTE | 2025-02-12 11:42 | DISCHARGE SUMMARY-Residence ---
Discharge Summary Providers to Resident Creating Document: CASPER KENT, YOMI ~ Discharge Summary Admission Diagnosis: Acute appendicitis Hospital Course DATE OF ADMISSION: 02/08/2025 DATE OF DISCHARGE: 02/12/2025 CT abdomen pelvis with IV contrast FINDINGS: There is diffuse fatty infiltration of the liver. The gallbladder, pancreas, kidneys, adrenal glands, and spleen appear within normal limits. There is no evidence of abdominal lymphadenopathy. There is no free fluid or free air. The stomach grossly appears unremarkable. The small and large bowel loops demonstrate normal caliber and distribution. There is a dilated appendix with mural thickening with moderate surrounding fat stranding consistent with acute appendicitis. There is small amount of periappendiceal free air and fluid suggesting rupture. There is no evidence of organized fluid collection to suggest abscess. There are scattered diverticula in the sigmoid colon without evidence of acute diverticulitis. The abdominal aorta and IVC appear within normal limits. The bladder appears within normal limits the degree of distention. Pelvic organ is unremarkable. There is no evidence of a pelvic mass or lymphadenopathy. There is no free fluid collection. Lung bases are clear. There is no acute osseous abnormality. IMPRESSION: 1. Findings consistent with acute appendicitis. There is small amount of periappendiceal free air and fluid suggesting rupture. There is no evidence of periappendiceal abscess. Discharge Diagnosis\Comment: Acute Perforated Appendicitis Ruptured gangrenous appendicitis with feculent peritonitis Wound class four Sepsis Nicotine use disorder Operations\Procedures: Date of Procedure: February 08, 2025 Pre-Operative Diagnosis: Acute appendicitis Post-Operative Diagnosis Ruptured gangrenous appendicitis with feculent peritonitis Procedure Performed Robotic assisted, laparoscopic appendectomy Surgeon: Emmett Chaparro MD FACS Medical Receptionist None Anesthesiologist: Holly Watters Type of Anesthesia: General Findings: Contained and ruptured appendicitis. Retrocecal appendix. Gangrenous with perforation and localized feculent peritonitis Wound class IV Complications None Prosthetics\Implants used: 19 Uzbek Mike drain Estimated Blood Loss: 50 cc Specimen Removed: Appendix in pieces Description of Procedure: Patient was brought to the operating room and identified by the nursing staff and the attending physician. Patient was placed supine and a general anesthesia was induced. The patient's abdomen was prepped and draped in the standard sterile fashion. Preoperative antibiotics were given. Veress needle technique was used at Bruce's point and the abdomen was insufflated without incident. Under laparoscopic visualization a 12 mm port was placed in the right upper quadrant. Laparoscope was inserted and additional 8.5 mm robotic ports were placed in the left periumbilical and left lower quadrant. Patient was placed in Trendelenburg position with the right side up. Da Ana robotic arm was docked to the patient and instruments guided into the abdomen under laparoscopic visualization. Appendix was not readily identified. Omentum was swept up to the upper abdomen. Small bowel was swept towards the left side of the abdomen. Cecum was visualized. There was an inflammatory process in the retrocecal space. The cecum was rolled toward the midline, unroofing a contained perforation. Due to the patient's body habitus, it was difficult to obtain adequate visualization with the retraction at hand. I scrubbed back in and placed a 4th robotic port. This was docked and instruments placed under laparoscopic visualization. This was used for retraction throughout the case. The appendix was bluntly mobilized out of the retrocecal space. It was grossly gangrenous and ruptured with localized peritonitis and visible feculent material. The area was suctioned and irrigated and particulate matter was all suctioned. While trying to mobilize the appendix it avulsed about 1 cm distal to the base. Base was divided from the cecum using a robotic linear cutting stapler. There was active bleeding from the mesoappendix. I was not able to gain control of this until I mobilize the remainder of the appendix out of the retrocecal space. This was set aside with the stump. Bleeding at the mesoappendix was controlled with bipolar grasper and no further bleeding from the appendiceal artery continued. The area was then copiously irrigated with 2 L of saline solution and suctioned until the irrigant returned clear. Mike drain was brought in through the lateral port and laid in the right pericolic gutter and extended down into the right hemipelvis. The appendix was placed in a laparoscopic retrieval bag and removed. Instruments were removed and the de Ana robotic arm was undocked from the patient. The 12 mm port site fascia was closed percutaneously with 0 Vicryl suture. Remaining ports were removed and the abdomen was allowed to deflate. Drain was sutured in place. Skin was closed at all sites with skin celio. Dressings were applied. Patient was awakened and taken to the postanesthesia care unit in stable condition. Counts repoted as correct: Yes EMMETT CHAPARRO MD February 08, 2025 21:13 Consultants: DR. KRYSTA LAWRENCE Complications: NONE Condition on DC: Stable New Medications: Amox Tr/Potassium Clavulanate 875/125 MG (Augmentin 875/125 MG) 875 Mg-125 Mg Tablet 1 TAB PO BID for 7 Days, #14 TAB Lactobacillus Rhamnosus (Culturelle) 10 Billion Cell Capsule 1 CAP PO DAILY for 30 Days, #30 CAP 0 Refills Continued Medications: Acetaminophen (Tylenol) 325 Mg Tablet 1 TAB PO Q4HPRN PRN for pain or fever for 24 Days, #100 TAB Ibuprofen (Ibuprofen) 600 Mg Tablet 1 TAB PO Q8H for 10 Days, #30 TAB Orphenadrine Citrate (Norflex) 100 Mg Tablet.sa 1 TAB PO Q12H PRN, #20 TAB Discharge Summary: HPI AT THE TIME POF ADMISSION PER ADMITTING PHYSICIAN 39-year-old male patient presents to the hospital complaints of right lower abdominal pain. Reports symptoms of abdominal pain that began two days ago with the associated diarrhea, nausea and vomiting. He thought he had food poisoning and therefore, did not come into the hospital. Yesterday the pain had worsened and migrated from the umbilical region to the right lower quadrant requiring him to come into the ER today. Denies any fevers or chills. COURSE IN HOSPITAL Admitted for acute perforated appendicitis with feculent peritonitis and sepsis. WBC counts were elevated as high as 27.4 during the time of admission and then trended down to 10 at the time of discharge. C-reactive protein is elevated as high as 31 during the time of admission and then trended down to 9.43. Procalcitonin is 6.6 on 02/09/2025 and then trended down 2.8 eight on 02/12/2025. Patient received IV normal saline and Zosyn IV , NPO and consulted Dr. Chaparro. Patient underwent surgery-robotic assisted laparoscopic appendicectomy by Dr. Chaparro on 02/08/2025. Postop period is uneventful. We advanced the diet as tolerated and vitals were stable. He declines nicotine patch for nicotine use disorder. Blood culture is showing Gram-positive rods. Surgeon cleared for the discharge and we discharge the patient on Augmentin for one week . EXAMINATION AT THE TIME OF DISCHARGE Vital Signs Date Time Temp Pulse Resp B/P (MAP) Pulse Ox O2 Delivery O2 Flow Rate FiO2 5/25/25 08:00 18 97 Room Air 0.0 02/12/25 06:00 97.1 54 138/84 (102) 02/09/25 02:38 93 General: Awake and Alert, no acute distress. HEENT: Conjunctiva pink, Sclera clear, Mucus Membranes moist. Resp: Unlabored. Diminished basilar breath sounds. Heart: Regular Rate and rhythm, normal S1 and S2 without murmur, rub or gallop. Abdomen: Distended, soft, nontender, bowel sounds present. Laparoscopic incision scars with bandage present. Extremities: No cyanosis,clubbing or edema. Skin: Warm and Dry DISCHARGE ADVISE followup with PCP in 1 week with cbc,cmp and follow up with blood cultures and sensitivity. followup with Dr. Lawrence. continue augmentin 875/125 po (by mouth) twice daily (9AM and 9PM) for 7 days, do not stop until fully completed. Continue culturulle po (by mouth) daily for 1 month read side effects of prescribed medication. Call 911 or visit ER if emergency. No lifting over 10 lbs or gallon of milk, no sport activity, no riding motorcycles, activities that may cause strain until released by surgeon. Do walk to improve circulation, lung capacity and strength. Decrease activity if pain increases. You may shower, no submerging in water (tubs, swimming, hottubs). Apply dressing if going into public, can leave open to air if at home. Do not pick, scratch or scrub incisions. Call the surgeon or return to the ER if: Fever greater than 101, increased drainage from the incisions, Dark blood from the incision site, Pus from the incision site, increased redness around the incision site, Uncontrollable pain, severe chest pain or shorness of breath. *Problems/Diagnosis: (1) Ruptured appendicitis Status: Acute (2) Acute perforated appendicitis (3) Peritonitis (4) Sepsis (5) Nicotine use Total Time Spent on D/C: > 30 Minutes Date of Service: February 12, 2025 Billing Provider: WESTLEY VALIENTE MD Common Visit Codes: [id number] DISCH DAY >30min KEVINCASPER ANGYOMI February 12, 2025 11:42 WESTLEY VALIENTE MD February 12, 2025 18:17
[2025-02-12] MEDS ORDERED: PANT40TA54 PO (18:20)
== END 2025-02-12 10:34 | disposition home or self-care (01) | DRG 710 ==
LOC: ER 07:15 → ED HOLD 10:29 → EDBEDREQ 13:02 → SUR 3N 17:42
PROVIDERS: ADMIT Internal Medicine; ATTEND Internal Medicine
PROC: 8E0W4CZ Robotic Assisted Procedure of Trunk Region, Percutaneous Endoscopic Approach (ICD-10-PCS; 2025-02-08)
PROC: BW211ZZ Computerized Tomography (CT Scan) of Abdomen and Pelvis using Low Osmolar Contrast (ICD-10-PCS; 2025-02-08)
PROC: 0DTJ4ZZ Resection of Appendix, Percutaneous Endoscopic Approach (ICD-10-PCS; principal; 2025-02-08 19:01)
DX: A41.9 Sepsis, unspecified organism (principal); K35.32 Acute appendicitis with perforation, localized peritonitis, and gangrene, without abscess; F17.210 Nicotine dependence, cigarettes, uncomplicated; Z79.899 Other long term (current) drug therapy
CPT/HCPCS: 36415; 74177; 80048; 80053; 80061; 80305; 81003; 82150; 82948; 83605; 83690; 83735; 84145; 85007; 85025; 85610; 85651; 85730; 86140; 87040; 87081; 96365; 99291; A4215; A4615; A4618; A6258; A6402; G0378; J0131; J0694; J1100; J1644; J2003; J2250; J2270; J2405; J2543; J2704; J2710; J3010; J3490; J7030; J7120; Q9967